=== PATIENT | male | born 1950 | race Caucasian/White ===

== ENCOUNTER 2022-03-21 10:44 | Inpatient (IN) ==
[2022-03-21] MEDS ORDERED: SODIUM CHLORIDE 0.9% 1,000 ML IV STA ×2 (11:35→11:39)
[2022-03-21] MEDS ORDERED: HYDROmorphone 1 MG/1 ML SYRINGE IV STA (11:39)
[2022-03-21] MEDS ORDERED: ONDANSETRON 4 MG/2 ML VIAL IV STA (11:39)
[2022-03-21 11:49] LABS: Basophils % 0.3 % (0.0-0.8); Eosinophils % 0.1 % (0.00-10.9); Hematocrit 41.7 VOL% (42.0-52.0); Hemoglobin 14.2 GM/DL (14.0-18.0); Immature Granulocytes % 0.3 %; Immature Granulocytes Absolute 0.03 #; Lymphocytes # 0.7 10*3/uL (1.4-4.0); Mean Corpuscular HGB Conc 34.1 GM/DL (32-36); Monocytes # 1.1 10*3/uL (0.11-0.8); Monocytes % 10.8 % (1.7-12.7); Neutrophils % 81.5 % (38.7-73.9); Platelet Count 255 T/CUMM (130-400); Red Blood Count 4.58 MC/CUMM (3.8-5.5); Red Cell Distribution Width 12.2 % (9.3-17.3); White Blood Count 10.5 T/CUMM (4-12)
[2022-03-21 12:04] LABS: Albumin 3.7 G/DL (3.4-5.0); Bilirubin,Total 1.5 MG/DL (0.20-1.00); Calcium 9.3 MG/DL (8.5-10.1); Osmolality,Calculated 263.7 MOS/KG (273-304); Potassium 4.1 MMOL/L (3.5-5.1); Total Protein 7.6 G/DL (6.4-8.2)
[2022-03-21] MEDS ORDERED: HYDROmorphone 1 MG/1 ML SYRINGE IV PRN (12:21)
[2022-03-21] MEDS ORDERED: ACETAMINOPHEN 325 MG TABLET PO PRN (12:21)
[2022-03-21] MEDS: PIPERACILLIN/TAZOBACTAM 3,375 MG in SODIUM CHLORIDE 0.9% 100 ML IV SCH ×2 (12:47→20:12)
[2022-03-21] MEDS: PANTOPRAZOLE 40 MG VIAL IV SCH (12:47)
[2022-03-21] MEDS: DEXTROSE 5% NACL 0.45% 1,000 ML IV SCH (12:59)
[2022-03-21] MEDS: ONDANSETRON 4 MG/2 ML VIAL IV PRN ×2 (14:23→22:00)
[2022-03-21] MEDS ORDERED: INFLUENZA VIRUS VACCINE 0.5 ML SYRINGE IM ONE (14:46)
[2022-03-22] MEDS: DEXTROSE 5% NACL 0.45% 1,000 ML IV SCH ×2 (00:27→15:48)
[2022-03-22 05:10] LABS: Basophils % 0.2 % (0.0-0.8); Eosinophils % 0.1 % (0.00-10.9); Hematocrit 38.4 VOL% (42.0-52.0); Hemoglobin 12.7 GM/DL (14.0-18.0); Immature Granulocytes % 0.6 %; Immature Granulocytes Absolute 0.06 #; Lymphocytes # 0.7 10*3/uL (1.4-4.0); Lymphocytes % 6.3 % (21.2-54.2); Mean Corpuscular HGB Conc 33.1 GM/DL (32-36); Mean Corpuscular Volume 93.7 FL (87-102); Mean Platelet Volume 10.2 FL (9.6-12.0); Monocytes # 1.9 10*3/uL (0.11-0.8); Monocytes % 17.7 % (1.7-12.7); Neutrophils % 75.1 % (38.7-73.9); Platelet Count 222 T/CUMM (130-400); Red Cell Distribution Width 12.4 % (9.3-17.3); White Blood Count 10.8 T/CUMM (4-12)
[2022-03-22] MEDS: PIPERACILLIN/TAZOBACTAM 3,375 MG in SODIUM CHLORIDE 0.9% 100 ML IV SCH ×3 (05:30→21:01)
[2022-03-22] MEDS: ONDANSETRON 4 MG/2 ML VIAL IV PRN ×2 (05:32→21:24)
[2022-03-22 05:46] LABS: Albumin 2.9 G/DL (3.4-5.0); Band Neutrophils 1 % (0-10); Bilirubin,Total 1.3 MG/DL (0.20-1.00); Calcium 9.1 MG/DL (8.5-10.1); Lymphocytes 7 % (20-55); Osmolality,Calculated 269.2 MOS/KG (273-304); Potassium 4.3 MMOL/L (3.5-5.1); Total Cells Counted 100
[2022-03-22 05:47] LABS: Hypochromia Slight; Microcytosis Slight
[2022-03-22 05:48] LABS: Ovalocytes Slight
[2022-03-22] MEDS ORDERED: INDOCYANINE GREEN 25 MG VIAL IV ONE (09:30)
[2022-03-22] MEDS: PANTOPRAZOLE 40 MG VIAL IV SCH (09:48)
[2022-03-22] MEDS ORDERED: TISSUE ADHESIVE 1 EACH APPLICATOR TOP ONE (10:21)
[2022-03-22] MEDS ORDERED: BUPIVACAINE MPF 0.25% 10 ML VIAL ONE (10:21)
[2022-03-22] MEDS ORDERED: LIDOCAINE 2%/EPI 20 ML VIAL ONE (10:21)
[2022-03-22] MEDS ORDERED: KETOROLAC 30 MG/1 ML VIAL ONE (10:26)
[2022-03-22] MEDS ORDERED: ROCURONIUM 50 MG/5 ML VIAL IV ONE (10:26)
[2022-03-22] MEDS ORDERED: DEXAMETHASONE 4 MG/1 ML VIAL ONE ×2 (10:26→12:51)
[2022-03-22] MEDS ORDERED: propofoL 200 MG/20 ML VIAL IV ONE (10:26)
[2022-03-22] MEDS ORDERED: SEVOFLURANE 1 UNIT/15 MINUTE INH ONE ×3 (10:26→12:51)
[2022-03-22] MEDS ORDERED: SUCCINYLCHOLINE 200 MG/10 ML VIAL ONE (10:26)
[2022-03-22] MEDS ORDERED: ACETAMINOPHEN INJ 1,000 MG/100 ML VIAL IV ONE (10:26)
[2022-03-22] MEDS ORDERED: ONDANSETRON 4 MG/2 ML VIAL ONE (10:26)
[2022-03-22] MEDS ORDERED: LIDOCAINE 2% 5 ML VIAL ONE (10:26)
[2022-03-22] MEDS ORDERED: fentaNYL 100 MCG/2 ML VIAL ONE (10:27)
[2022-03-22] MEDS ORDERED: MIDAZOLAM 2 MG/2 ML VIAL ONE (10:27)
[2022-03-22] MEDS ORDERED: SCOPOLAMINE 1.5 MG PATCH TRANSDERM ONE ×2 (10:45→10:46)
[2022-03-22] MEDS ORDERED: ePHEDrine 50 MG/ML VIAL ONE (11:34)
[2022-03-22] MEDS ORDERED: PHENYLEPHRINE 1 MG/10 ML SYRINGE IV ONE ×2 (11:51→11:59)
[2022-03-22] MEDS ORDERED: SUGAMMADEX 200 MG/2 ML VIAL IV ONE (12:31)
[2022-03-23] MEDS: DEXTROSE 5% NACL 0.45% 1,000 ML IV SCH (00:59)
[2022-03-23] MEDS: PIPERACILLIN/TAZOBACTAM 3,375 MG in SODIUM CHLORIDE 0.9% 100 ML IV SCH (04:12)
[2022-03-23 05:52] LABS: Basophils % 0.1 % (0.0-0.8); Hematocrit 34.1 VOL% (42.0-52.0); Hemoglobin 11.4 GM/DL (14.0-18.0); Immature Granulocytes % 0.5 %; Immature Granulocytes Absolute 0.06 #; Lymphocytes # 0.6 10*3/uL (1.4-4.0); Lymphocytes % 4.2 % (21.2-54.2); Mean Corpuscular HGB Conc 33.4 GM/DL (32-36); Mean Platelet Volume 10.2 FL (9.6-12.0); Monocytes # 1.8 10*3/uL (0.11-0.8); Monocytes % 13.9 % (1.7-12.7); Neutrophils % 81.3 % (38.7-73.9); Platelet Count 188 T/CUMM (130-400); Red Blood Count 3.59 MC/CUMM (3.8-5.5); Red Cell Distribution Width 12.8 % (9.3-17.3); White Blood Count 13.3 T/CUMM (4-12)
[2022-03-23 06:18] LABS: Lymphocytes 6 % (20-55); Total Cells Counted 100
[2022-03-23 06:19] LABS: Platelet Estimate Adequate
[2022-03-23 06:20] LABS: Albumin 2.5 G/DL (3.4-5.0); Bilirubin,Total 0.8 MG/DL (0.20-1.00); Calcium 8.4 MG/DL (8.5-10.1); Potassium 4.2 MMOL/L (3.5-5.1); Total Protein 6.6 G/DL (6.4-8.2)
[2022-03-23] MEDS ORDERED: PANTOPRAZOLE 40 MG TABLET PO SCH (07:15)
[2022-03-23] MEDS ORDERED: SERTRALINE 25 MG TABLET PO SCH (09:00)
[2022-03-23 09:17] VITALS: BP 99/56
== END 2022-03-23 11:15 | disposition home or self-care (01) | DRG 418 ==
LOC: N.ED 10:44 → N.EDINP 12:21 → N.3E 14:10
PROVIDERS: ADMIT Surgery; ATTEND Surgery